=== PATIENT | male | born 1995 | race Caucasian/White ===

== ENCOUNTER 2020-11-15 15:24 | Emergency (ER) | payer OTHER ==
[~2020-11-15 15:24] MED LIST: BENADRYL 50MG C50 MG PO; DELSYM30 MG/5 ML PO; FLONASE 0.05% N16 GM; OMNICEF 300 MG300 MG PO; PREDNISONE 20 M20 MG PO; PREDNISONE 50 M50 MG PO
[2020-11-15] MEDS ORDERED: AUGMENTIN 875-1 EACH PO (17:40)
== END 2020-11-15 18:30 | disposition home or self-care (01) ==
LOC: ER1 15:24
DX: J32.9 Chronic sinusitis, unspecified (principal); Z20.822 Contact with and (suspected) exposure to COVID-19
CPT/HCPCS: 0240U; 71045; 87081; 87880; 99283

== ENCOUNTER 2021-11-11 11:08 | Emergency (ER) | payer OTHER ==
[~2021-11-11 11:08] MED LIST changes: +AUGMENTIN 875-1 EACH PO
[2021-11-11] MEDS ORDERED: IBUPROFEN600 MG PO (13:11)
== END 2021-11-11 13:40 | disposition home or self-care (01) ==
LOC: ER1 11:08
DX: S93.402A Sprain of unspecified ligament of left ankle, initial encounter (principal); I25.2 Old myocardial infarction; X50.9XXA Other and unspecified overexertion or strenuous movements or postures, initial encounter; Y92.009 Unspecified place in unspecified non-institutional (private) residence as the place of occurrence of the external cause
CPT/HCPCS: 73590; 73610; 73630; 99283